=== PATIENT | male | born 1970 | race Hispanic/Latino ===

== ENCOUNTER 2018-03-16 19:21 | Inpatient (IN) | payer OTHER ==
[2018-03-16] MEDS ORDERED: Naloxone 0.4 mg/ml Inj (Adult) IVP ONE (19:35)
[2018-03-16] MEDS ORDERED: Sodium Chloride 0.9% 1,000 ML IV STA (19:35)
[2018-03-16 19:51] LABS: BASO % 0.4 % (0.0-2.0); EOS # 0.1 K/uL (0.0-0.7); EOS % 1.3 % (0.0-4.0); HEMOGLOBIN 15.6 g/dL (12.0-18.0); LYMPH # 3.2 K/uL (1.0-4.3); LYMPH % 36.4 % (20.0-40.0); MEAN CORPUSCULAR HEMOGLOBIN 31.6 pg (27.0-31.0); MEAN CORPUSCULAR HGB CONC 33.9 g/dL (33.0-37.0); MEAN PLATELET VOLUME 8.2 fl (7.2-11.7); MONO # 0.5 K/uL (0.0-0.8); MONO % 6.2 % (0.0-10.0); NEUT # 4.8 K/uL (1.8-7.0); NEUT % 55.7 % (50.0-75.0); NRBC % 0.1 % (0.0-0.0); RBC 4.96 Mil/uL (4.40-5.90); RED CELL DISTRIBUTION WIDTH 13.1 % (11.5-14.5); WHITE BLOOD COUNT 8.7 K/uL (4.8-10.8)
[2018-03-16 20:02] LABS: ACETAMINOPHEN < 10.0 ug/ml (10.0-30.0); ALB/GLOB RATIO 1.4 (1.0-2.1); ALBUMIN 4.7 g/dL (3.5-5.0); ALT/SGPT 48 U/L (21-72); AST/SGOT 59 U/L (17-59); BLOOD UREA NITROGEN 22 mg/dl (9-20); CALCIUM 9.1 mg/dL (8.4-10.2); GFR AFRICAN-AMERICAN > 60; GFR NON-AFRICAN AMERICAN > 60; SALICYLATE < 1.0 mg/dl
--- NOTE | 2018-03-16 20:05 | ED PDOC ---
HPI: Psych/Substance Abuse Time Seen by Provider: 03/16/18 19:25 Chief Complaint (Nursing): Substance Abuse Chief Complaint (Provider): heroin overdose ED Caveat: Altered Mental Status History Per: Patient History/Exam Limitations: clinical condition Onset/Duration Of Symptoms: Hrs Current Symptoms Are (Timing): Still Present Modifying Factor(s): Narcotics Severity: Moderate Additional History Per: EMS Additional Complaint(s): Pt brought in by EMS for altered mental status. Pt was found on the floor of a parking lot, apparently had snorted heroin prior to that. EMS gave 4 mg intranasal narcan with only minimal improvement. Pt arrived being bagged by ambu bag. Pt moaning slightly but not conversant. NO other history known. Past Medical History Reviewed: Unable To Obtain Vital Signs: Last Vital Signs Temp 98.6 F 03/16/18 19:51 Pulse 89 03/16/18 19:51 Resp 16 03/16/18 19:51 BP 132/109 H 03/16/18 19:51 Pulse Ox 100 03/16/18 19:51 - Family History Family History: States: Unknown Family Hx - Home Medications Home Medications: Ambulatory Orders Medication Instructions Recorded ALPRAZolam [Xanax] 1 mg PO DAILY PRN 03/17/18 Mirtazapine [Remeron] 15 mg PO 03/17/18 Zolpidem [Ambien] 5 mg PO HS 03/17/18 Azithromycin [Zithromax] 250 mg PO DAILY #6 tab 03/18/18 amLODIPine [Norvasc] 5 mg PO DAILY #30 tab 03/18/18 - Allergies Allergies/Adverse Reactions: Allergies Allergy/AdvReac Type Severity Reaction Status Date / Time No Known Allergies Allergy Verified 03/17/18 05:49 Review of Systems Review Of Systems: ROS cannot be obtained secondary to pt's inabilty to answer questions. Physical Exam - Physical Exam Appears: Positive for: In Acute Distress (diaphoretic, not conversant but moaning) Head Exam: Positive for: ATRAUMATIC, NORMAL INSPECTION, NORMOCEPHALIC Skin: Positive for: Normal Color, Warm, Dry Eye Exam: Positive for: PERRL. Negative for: Nystagmus, Periorbital swelling, Periorbital tenderness, Conjunctival injection ENT: Positive for: Normal ENT Inspection Neck: Positive for: Normal Cardiovascular/Chest: Positive for: Regular Rate, Rhythm, Chest Non Tender Respiratory: Positive for: Normal Breath Sounds. Negative for: Crackles Gastrointestinal/Abdominal: Positive for: Normal Exam, Bowel Sounds, Soft Extremity: Positive for: Normal ROM Neurologic/Psych: Negative for: Alert, Oriented - Laboratory Results Result Diagrams: 03/17/18 06:06 03/17/18 05:50 - ECG ECG Rhythm: Positive for: Sinus Rhythm (95) O2 Sat by Pulse Oximetry: 100 Medical Decision Making Medical Decision Making: Pt presented to the ER sp heroin overdose, minimally responsive to verbal stimuli, diaphoretic. pt had apparently never lost his pulse. currently vitals stable pt initially set up with ongoing security monitor accucheck 162 narcan.4 given with increased agitation/pt began waking up and become more responsive pt switched to NRB Ordered CT head to rule out intracranial process labs, cultures, rule out sepsis rule out electrolye imbalance 20:21 EXAM: CT Head Without Intravenous Contrast EXAM DATE/TIME: 03/16/2018 7:33 PM CLINICAL HISTORY: 43 years old, male; Signs and symptoms; Other: Poss overdose; Additional info: Found on the ground TECHNIQUE: Axial computed tomography images of the head/brain without intravenous contrast. All CT scans at this facility use at least one of these dose optimization techniques: automated exposure control; mA and/or kV adjustment per patient size (includes targeted exams where dose is matched to clinical indication); or iterative reconstruction. COMPARISON: No relevant prior studies available. FINDINGS: Brain: Normal. No hemorrhage. No significant white matter disease. No edema. Ventricles: Normal. No ventriculomegaly. Bones/joints: Normal. No acute fracture. Sinuses: Normal as visualized. No acute sinusitis. Mastoid air cells: Normal as visualized. No mastoid effusion. Soft tissues: Normal. IMPRESSION: No acute findings. Thank you for allowing us to participate in the care of your patient. Dictated and Authenticated by: Latrell Engel MD 03/16/2018 8:21 PM Eastern Time ([place] & [place]) X-Ray: X-Ray shows non cardiogenic pulmonary edema secondary to heroin abuse. Patient also given Clindamycin for potential infection or pneumonia. Dr Lou aware. Disposition - Clinical Impression Clinical Impression: Drug overdose - Patient ED Disposition Is Patient to be Admitted: Yes - Disposition Disposition Time: 21:00 Condition: STABLE
[2018-03-16 20:13] LABS: BARBITURATES, UR NEGATIVE (NEGATIVE); BENZODIAZEPINES, UR POSITIVE (NEGATIVE); OPIATES, UR POSITIVE (NEGATIVE); PHENCYCLIDINE, UR NEGATIVE (NEGATIVE)
[2018-03-16 20:21] LABS: SPERM URINE RARE /hpf; URINE BILIRUBIN NEGATIVE (NEGATIVE); URINE BLOOD NEGATIVE (NEGATIVE); URINE CLARITY CLEAR (Clear); URINE COLOR YELLOW (YELLOW); URINE GLUCOSE (UA) NEG (Normal); URINE HYALINE CAST 0-2 /hpf (0-2); URINE LEUKOCYTE ESTERASE NEG Leu/uL (Negative); URINE PROTEIN NEGATIVE (NEGATIVE); URINE UROBILINOGEN 0.2-1.0 mg/dL (0.2-1.0)
[2018-03-17] MEDS ORDERED: Clindamycin 600mg/50ml NS 600 MG/50 ML BAG IVPB STA (00:11)
[2018-03-17 00:35] LABS: ABG ALLEN TEST YES; ARTERIAL BLOOD GAS HCO3 26.1 mmol/L (21-28); ARTERIAL BLOOD GAS O2 SAT 95.6 % (95-98); ARTERIAL BLOOD GAS PCO2 56 mm/Hg (35-45); ARTERIAL BLOOD GAS PH 7.32 (7.35-7.45); ARTERIAL BLOOD GAS PO2 72 mm/Hg (80-100); ARTERIAL BLOOD GAS TCO2 30.6 mmol/L (22-28)
[2018-03-17] MEDS ORDERED: Clindamycin 600mg/50ml NS 600 MG/50 ML BAG IVPB ONE (01:21)
[2018-03-17 01:40] LABS: B-TYPE NATRIURETIC PEPTIDE 96.5 pg/ml (0-450); TROPONIN I 0.093 ng/mL (0.00-0.120)
[2018-03-17 04:03] VITALS: BMI 33.7
[2018-03-17] MEDS ORDERED: Sodium Chloride 3% for Inhalation 4 ML VIAL.NEB IH PRN (05:04)
[2018-03-17] MEDS ORDERED: Dextrose 5%/0.45% NS 1,000 ML IV SCH (05:15)
[2018-03-17 06:20] LABS: BASO % 0.3 % (0.0-2.0); EOS % 0.2 % (0.0-4.0); LYMPH # 0.9 K/uL (1.0-4.3); LYMPH % 6.2 % (20.0-40.0); MEAN CELL VOLUME 93.1 fl (80.0-94.0); MEAN CORPUSCULAR HEMOGLOBIN 31.7 pg (27.0-31.0); MEAN CORPUSCULAR HGB CONC 34.1 g/dL (33.0-37.0); MEAN PLATELET VOLUME 7.7 fl (7.2-11.7); MONO # 0.7 K/uL (0.0-0.8); MONO % 4.4 % (0.0-10.0); NEUT # 13.7 K/uL (1.8-7.0); NEUT % 88.9 % (50.0-75.0); PLATELET COUNT 165 K/uL (130-400); RBC 4.42 Mil/uL (4.40-5.90); WHITE BLOOD COUNT 15.4 K/uL (4.8-10.8)
[2018-03-17 07:03] LABS: BLOOD UREA NITROGEN 16 mg/dl (9-20); CALCIUM 8.4 mg/dL (8.4-10.2); GFR AFRICAN-AMERICAN > 60; GFR NON-AFRICAN AMERICAN > 60
--- NOTE | 2018-03-17 08:06 | CT ---
PROCEDURE: CT HEAD WITHOUT CONTRAST. HISTORY: found on the ground COMPARISON: None available. TECHNIQUE: Axial computed tomography images were obtained through the head/brain without intravenous contrast. Radiation dose: Total exam DLP = 1090.41 mGy-cm. This CT exam was performed using one or more of the following dose reduction techniques: Automated exposure control, adjustment of the mA and/or kV according to patient size, and/or use of iterative reconstruction technique. FINDINGS: HEMORRHAGE: No intracranial hemorrhage. BRAIN: No mass effect or edema. No atrophy or chronic microvascular ischemic changes. VENTRICLES: Unremarkable. No hydrocephalus. CALVARIUM: Unremarkable. PARANASAL SINUSES: Unremarkable as visualized. No significant inflammatory changes. MASTOID AIR CELLS: Unremarkable as visualized. No inflammatory changes. OTHER FINDINGS: IMPRESSION: No acute intracranial abnormalities. No significant findings to account for the clinical presentation. Concordant results (preliminary interpretation) provided by [employer]. Procedure Completed: 19:50 Preliminary ([facility]) Report: Dictated and Authenticated: 20:21 Final Interpretation: 08:40 March 17, 2018.
[2018-03-17] MEDS: Enoxaparin 40 mg Syringe SC SCH (08:12)
[2018-03-17] MEDS: Clindamycin in NS 300 MG/50 ML BAG IVPB SCH ×2 (08:13→16:13)
--- NOTE | 2018-03-17 08:25 | RAD ---
HISTORY: heroin overdose COMPARISON: No prior. FINDINGS: LUNGS: Multifocal infiltrates likely mild pulmonary edema. PLEURA: No significant pleural effusion identified, no pneumothorax apparent. CARDIOVASCULAR: No radiographic findings to suggest acute or significant cardiovascular disease. OSSEOUS STRUCTURES: No significant abnormalities. VISUALIZED UPPER ABDOMEN: Normal. OTHER FINDINGS: None. IMPRESSION: Multifocal infiltrates likely noncardiogenic pulmonary edema. Concordant findings provided by [facility]
--- NOTE | 2018-03-17 08:30 | CARD ---
APPROVED REPORT EKG Measurement Heart [id number] <Conclusion> Normal sinus rhythm Normal ECG
--- NOTE | 2018-03-17 08:58 | CP.PCM.CON ---
History of Present Illness - History of Present Illness History of Present Illness: Psychiatry consult note CC: Overdose on heroin HPI: 47 yo male presents s/p heroin overdose. He states that he took heroin to deal with his chronic pain. He denies suicide attempt. He reports that he is grieving the of his mother, but denies feeling consistently depressed. No anxiety/AH/VH/SI/HI. He is not interested in inpatient or outpatient psychiatric or substance abuse treatment at this time. PPHx: Denies past psychiatric history of hospitalizations, medications or suicide attempts MHx: Chronic pain (knee, ankle, shoulder, back) ALL: NKDA FHx: Father w/ h/o paranoid schizophrenia; completed suicide SHx: Unemployed; lives alone, single, no kids; +Heroin abuse; +drinks ETOH socially (approx weekly); +smokes 1ppd MSE: A + O x 3, calm, cooperative, good eye contact, mood/affect-neutral, thought process- linear/coherent, though content- no delusions; no AH/VH/SI/HI; Fair I/J; good impulse control Impression: 47 yo male presents s/p heroin overdose; diagnosis: Opioid Use Disorder -No acute psychiatric admission indicated -Patient not interested in substance abuse or outpatient psychiatric treatment at this time -Psychoeducation provided on the dangers of heroin abuse Past Patient History - Past Medical History & Family History Past Medical History?: Yes - Past Social History Smoking Status: Light Smoker < 10 Cigarettes Daily - CARDIAC Hx Hypercholesterolemia: Yes Hx Hypertension: Yes - PULMONARY Hx Sleep Apnea: Yes - NEUROLOGICAL Other/Comment: insomnia - MUSCULOSKELETAL/RHEUMATOLOGICAL Hx Falls: No Other/Comment: 3 right knee surgeries. 1 left knee surgery. 1 right ankle surgery. 3 right shoulder surgeries. bilateral hernia surgery - PSYCHIATRIC Hx Substance Use: Yes (heroin use) - ANESTHESIA Hx Anesthesia: Yes Hx Anesthesia Reactions: No Hx Malignant Hyperthermia: No Meds Allergies/Adverse Reactions: Allergies Allergy/AdvReac Type Severity Reaction Status Date / Time No Known Allergies Allergy Verified 03/17/18 05:49 - Medications Medications: Current Medications Acetaminophen (Tylenol 325mg Tab) 650 mg PO Q4 PRN PRN Reason: Pain, moderate (4-7) Alprazolam (Xanax) 1 mg PO DAILY PRN PRN Reason: Anxiety Enoxaparin Sodium (Lovenox) 40 mg SC DAILY JUMA PRN Reason: Protocol Last Admin: 03/17/18 08:12 Dose: 40 mg Clindamycin in NS (Clindamycin 300 Mg/50 Ml-Ns) 300 mg in 50 mls @ 48.077 mls/ hr IVPB Q8 JUMA PRN Reason: Protocol Last Admin: 03/17/18 08:13 Dose: 48.077 mls/hr Dextrose/Sodium Chloride (Dextrose 5%/0.45% Ns 1000 Ml) 1,000 mls @ 40 mls/hr IV .Q24H JUMA Stop: 03/18/18 05:06 Last Admin: 03/17/18 05:39 Dose: 40 mls/hr Pneumococcal Polyvalent Vaccine (Pneumovax 23 Vaccine) 0.5 ml IM .ONCE ONE Stop: 03/17/18 09:01 Last Admin: 03/17/18 08:13 Dose: 0.5 ml Results - Vital Signs Recent Vital Signs: Last Vital Signs Temp 98.7 F 03/17/18 08:00 Pulse 72 03/17/18 08:00 Resp 12 03/17/18 08:00 BP 122/66 03/17/18 08:00 Pulse Ox 96 03/17/18 08:00 - Labs Result Diagrams: 03/17/18 06:06 03/17/18 05:50 Labs: Laboratory Results - last 24 hr 03/16/18 03/16/18 03/16/18 19:35 19:35 19:35 WBC 8.7 RBC 4.96 Hgb 15.6 Hct 46.1 MCV 93.0 MCH 31.6 H MCHC 33.9 RDW 13.1 Plt Count 219 MPV 8.2 Neut % (Auto) 55.7 Lymph % (Auto) 36.4 [place] % (Auto) 6.2 Eos % (Auto) 1.3 Baso % (Auto) 0.4 Neut # (Auto) 4.8 Lymph # (Auto) 3.2 [place] # (Auto) 0.5 Eos # (Auto) 0.1 Baso # (Auto) 0.0 pCO2 pO2 HCO3 ABG pH ABG Total CO2 ABG O2 Saturation ABG Base Excess [place] Test ABG Potassium A-a O2 Difference Glucose Lactate Vent Mode FiO2 Sodium 144 Potassium 4.0 Chloride 103 Carbon Dioxide 26 Anion Gap 19 BUN 22 H Creatinine 1.3 Est GFR ( Amer) > 60 Est GFR (Non-Af Amer) > 60 Random Glucose 182 H Calcium 9.1 Total Bilirubin 0.5 AST 59 ALT 48 Alkaline Phosphatase 88 Troponin I NT-Pro-B Natriuret Pep Total Protein 8.1 Albumin 4.7 Globulin 3.4 Albumin/Globulin Ratio 1.4 Arterial Blood Potassium Urine Color Urine Clarity Urine pH Ur Specific [place] Urine Protein Urine Glucose (UA) Urine Ketones Urine Blood Urine Nitrate Urine Bilirubin Urine Urobilinogen Ur Leukocyte Esterase Urine RBC (Auto) Urine Microscopic WBC Hyaline Casts Urine Sperm (Auto) Salicylates < 1.0 Urine Opiates Screen Urine Methadone Screen Acetaminophen < 10.0 L Ur Barbiturates Screen Ur Phencyclidine Scrn Ur Amphetamines Screen U Benzodiazepines Scrn U Oth Cocaine Metabols U Cannabinoids Screen Alcohol, Quantitative < 10 03/16/18 03/16/18 03/17/18 19:35 19:35 00:27 WBC RBC Hgb Hct MCV MCH MCHC RDW Plt Count MPV Neut % (Auto) Lymph % (Auto) [place] % (Auto) Eos % (Auto) Baso % (Auto) Neut # (Auto) Lymph # (Auto) [place] # (Auto) Eos # (Auto) Baso # (Auto) pCO2 56 H pO2 72 L HCO3 26.1 ABG pH 7.32 L ABG Total CO2 30.6 H ABG O2 Saturation 95.6 ABG Base Excess 1.6 Shaka Test Yes ABG Potassium 4.0 A-a O2 Difference 571.0 Glucose 115 H Lactate 1.5 Vent Mode Nrb FiO2 100.0 Sodium 137.0 Potassium Chloride 105.0 Carbon Dioxide Anion Gap BUN Creatinine Est GFR ( Amer) Est GFR (Non-Af Amer) Random Glucose Calcium Total Bilirubin AST ALT Alkaline Phosphatase Troponin I NT-Pro-B Natriuret Pep Total Protein Albumin Globulin Albumin/Globulin Ratio Arterial Blood Potassium 4.0 Urine Color Yellow Urine Clarity Clear Urine pH 6.0 Ur Specific [place] 1.017 Urine Protein Negative Urine Glucose (UA) Neg Urine Ketones Negative Urine Blood Negative Urine Nitrate Negative Urine Bilirubin Negative Urine Urobilinogen 0.2-1.0 Ur Leukocyte Esterase Neg Urine RBC (Auto) 4 H Urine Microscopic WBC < 1 Hyaline Casts 0-2 Urine Sperm (Auto) Rare H Salicylates Urine Opiates Screen Positive H Urine Methadone Screen Negative Acetaminophen Ur Barbiturates Screen Negative Ur Phencyclidine Scrn Negative Ur Amphetamines Screen Negative U Benzodiazepines Scrn Positive U Oth Cocaine Metabols Negative U Cannabinoids Screen Negative Alcohol, Quantitative 03/17/18 03/17/18 03/17/18 01:13 05:50 06:06 WBC 15.4 H D RBC 4.42 Hgb 14.0 Hct 41.2 MCV 93.1 MCH 31.7 H MCHC 34.1 RDW 13.0 Plt Count 165 MPV 7.7 Neut % (Auto) 88.9 H Lymph % (Auto) 6.2 L [place] % (Auto) 4.4 Eos % (Auto) 0.2 Baso % (Auto) 0.3 Neut # (Auto) 13.7 H Lymph # (Auto) 0.9 L [place] # (Auto) 0.7 Eos # (Auto) 0.0 Baso # (Auto) 0.0 pCO2 pO2 HCO3 ABG pH ABG Total CO2 ABG O2 Saturation ABG Base Excess [place] Test ABG Potassium A-a O2 Difference Glucose Lactate Vent Mode FiO2 Sodium 136 Potassium 4.5 Chloride 103 Carbon Dioxide 28 Anion Gap 10 BUN 16 Creatinine 0.7 L Est GFR ( Amer) > 60 Est GFR (Non-Af Amer) > 60 Random Glucose 106 Calcium 8.4 Total Bilirubin AST ALT Alkaline Phosphatase Troponin I 0.0930 NT-Pro-B Natriuret Pep 96.5 Total Protein Albumin Globulin Albumin/Globulin Ratio Arterial Blood Potassium Urine Color Urine Clarity Urine pH Ur Specific [place] Urine Protein Urine Glucose (UA) Urine Ketones Urine Blood Urine Nitrate Urine Bilirubin Urine Urobilinogen Ur Leukocyte Esterase Urine RBC (Auto) Urine Microscopic WBC Hyaline Casts Urine Sperm (Auto) Salicylates Urine Opiates Screen Urine Methadone Screen Acetaminophen Ur Barbiturates Screen Ur Phencyclidine Scrn Ur Amphetamines Screen U Benzodiazepines Scrn U Oth Cocaine Metabols U Cannabinoids Screen Alcohol, Quantitative
[2018-03-17] MEDS ORDERED: Pneumococcal 23-Valent Vaccine IM ONE (09:00)
[2018-03-17 09:09] LABS: BANDS 1 % (0-2); LYMPHOCYTE 6 % (20-50); MONOCYTE 4 % (0-10); NEUTROPHIL 88 % (42-75); REACTIVE LYMPHOCYTES 1 % (0-0); TOTAL CELLS COUNTED 100
[2018-03-17 09:10] LABS: PLATELET ESTIMATE NORMAL (NORMAL)
[2018-03-18] MEDS: Clindamycin in NS 300 MG/50 ML BAG IVPB SCH ×2 (00:52→08:49)
--- NOTE | 2018-03-18 08:32 | HP ---
HISTORY OF PRESENT ILLNESS: Mr. Pantoja is a 47-year-old male who was brought in by EMS with altered mental status. He was admitted via the emergency room with drug overdose. They had given him some Narcan, and he was brought to the emergency room, was moaning, was not conversant, but while in intensive care unit, he became more alert, and presently gives a history of having used heroin on the day of admission, and he indicates that he has recently started using heroin very frequently since the of his mother. PAST MEDICAL HISTORY: He has a past medical history of depression. FAMILY HISTORY: Noncontributory. SOCIAL HISTORY: He indicates that he smokes one pack of cigarettes a day and uses heroin. Denies alcohol use and indicates that his mother recently in February and has since became more distressed. 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 PHYSICAL EXAMINATION: GENERAL: The patient is awake, alert, and oriented. VITAL SIGNS: Blood pressure on admission 132/109 with a pulse of 89, and respiratory rate 16. He was afebrile. O2 sat 100% on room air. SKIN: Shows fair turgor. HEENT: Pupils are equal and reactive to light and accommodation. Mouth shows fair hygiene. JVP flat. LUNGS: Scattered bilateral rales. HEART: S1, S2. ABDOMEN: Soft, nontender. No organomegaly. EXTREMITIES: No edema or cyanosis. surgery. CENTRAL NERVOUS SYSTEM: Grossly intact. LABORATORY DATA: Remarkable for WBC of 8.7, hemoglobin 15.6, and platelet count 219,000. Sodium 144, potassium 4, BUN 22, creatinine 1.3, serum glucose 182. Chest x-ray is remarkable for bilateral pulmonary infiltrates probably secondary to aspiration, one also has to rule out noncardiogenic pulmonary edema. CAT scan of the head was unremarkable. IMPRESSION: Drug overdose (heroin), pneumonia probably aspiration, pulmonary edema, history of depression, mild elevation of blood pressure probably secondary to stress. PLAN: Intravenous antibiotics, psychiatry evaluation. The patient does not want to stay in the hospital, he indicates that he has to go and take care of his . He will be seen by psychiatry, and if cleared, he definitely needs to stay in the hospital for IV antibiotic therapy, but he is advised that he can sign off against medical advice if he does not want to stay. Markos Lou MD
[2018-03-18] MEDS: Enoxaparin 40 mg Syringe SC SCH (08:50)
--- NOTE | 2018-03-18 10:20 | RAD ---
PROCEDURE: CHEST RADIOGRAPH, 1 VIEW HISTORY: pneumonia COMPARISON: Chest radiograph dated 03/16/2018 FINDINGS: LUNGS: Prominence of the pulmonary vasculature may be secondary to AP technique and/or pulmonary vascular congestion. Right basilar atelectasis. PLEURA: No pneumothorax or pleural fluid seen. CARDIOVASCULAR: Cardiomediastinal silhouette stably enlarged. OSSEOUS STRUCTURES: Unchanged. VISUALIZED UPPER ABDOMEN: Normal. OTHER FINDINGS: None. IMPRESSION: Prominence of the pulmonary vasculature may be secondary to AP technique and/or pulmonary vascular congestion. Right basilar atelectasis.
[2018-03-18 12:12] VITALS: BP 187/94; PULSE 66; RESP 18; TEMP 98.3
--- NOTE | 2018-03-18 13:03 | CP.PCM.DIS ---
Provider - Provider Date of Admission: 03/17/18 00:12 Attending physician: Markos Lou MD Time Spent in preparation of Discharge (in minutes): 35 Diagnosis - Discharge Diagnosis (1) Drug overdose Status: Acute (2) Depression Status: Acute (3) Hypertension Status: Acute (4) Aspiration pneumonia Status: Acute (5) Pain of anterior chest wall with respiration Status: Acute Hospital Course - Lab Results Lab Results: Micro Results 03/16/18 19:35 Urine,Galan Urine Culture - Final No Growth (<1,000 CFU/ML) 03/16/18 20:00 Blood Blood Culture - Preliminary NO GROWTH AFTER 24 HOURS 03/16/18 20:00 Blood Blood Culture - Preliminary NO GROWTH AFTER 24 HOURS Most Recent Lab Values WBC 15.4 K/uL (4.8-10.8) H D 03/17/18 06:06 RBC 4.42 Mil/uL (4.40-5.90) 03/17/18 06:06 Hgb 14.0 g/dL (12.0-18.0) 03/17/18 06:06 Hct 41.2 % (35.0-51.0) 03/17/18 06:06 MCV 93.1 fl (80.0-94.0) 03/17/18 06:06 MCH 31.7 pg (27.0-31.0) H 03/17/18 06:06 MCHC 34.1 g/dL (33.0-37.0) 03/17/18 06:06 RDW 13.0 % (11.5-14.5) 03/17/18 06:06 Plt Count 165 K/uL (130-400) 03/17/18 06:06 MPV 7.7 fl (7.2-11.7) 03/17/18 06:06 Neut % (Auto) 88.9 % (50.0-75.0) H 03/17/18 06:06 Lymph % (Auto) 6.2 % (20.0-40.0) L 03/17/18 06:06 [place] % (Auto) 4.4 % (0.0-10.0) 03/17/18 06:06 Eos % (Auto) 0.2 % (0.0-4.0) 03/17/18 06:06 Baso % (Auto) 0.3 % (0.0-2.0) 03/17/18 06:06 Neut # (Auto) 13.7 K/uL (1.8-7.0) H 03/17/18 06:06 Lymph # (Auto) 0.9 K/uL (1.0-4.3) L 03/17/18 06:06 [place] # (Auto) 0.7 K/uL (0.0-0.8) 03/17/18 06:06 Eos # (Auto) 0.0 K/uL (0.0-0.7) 03/17/18 06:06 Baso # (Auto) 0.0 K/uL (0.0-0.2) 03/17/18 06:06 Neutrophils % (Manual) 88 % (42-75) H 03/17/18 06:06 Band Neutrophils % 1 % (0-2) 03/17/18 06:06 Lymphocytes % (Manual) 6 % (20-50) L 03/17/18 06:06 Reactive Lymphs % 1 % (0-0) H 03/17/18 06:06 Monocytes % (Manual) 4 % (0-10) 03/17/18 06:06 Platelet Estimate Normal (NORMAL) 03/17/18 06:06 RBC Morphology Normal (NORMAL) 03/17/18 06:06 pCO2 56 mm/Hg (35-45) H 03/17/18 00:27 pO2 72 mm/Hg (80-100) L 03/17/18 00:27 HCO3 26.1 mmol/L (21-28) 03/17/18 00:27 ABG pH 7.32 (7.35-7.45) L 03/17/18 00:27 ABG Total CO2 30.6 mmol/L (22-28) H 03/17/18 00:27 ABG O2 Saturation 95.6 % (95-98) 03/17/18 00:27 ABG Base Excess 1.6 mmol/L (-2.0-3.0) 03/17/18 00:27 Shaka Test Yes 03/17/18 00:27 ABG Potassium 4.0 mmol/L (3.6-5.2) 03/17/18 00:27 A-a O2 Difference 571.0 mm/Hg 03/17/18 00:27 Sodium 137.0 mmol/L (132-148) 03/17/18 00:27 Chloride 105.0 mmol/L (98-107) 03/17/18 00:27 Glucose 115 mg/dL (75-110) H 03/17/18 00:27 Lactate 1.5 mmol/L (0.7-2.1) 03/17/18 00:27 Vent Mode Nrb 03/17/18 00:27 FiO2 100.0 % 03/17/18 00:27 Sodium 136 mmol/l (132-148) 03/17/18 05:50 Potassium 4.5 MMOL/L (3.6-5.0) 03/17/18 05:50 Chloride 103 mmol/L (98-107) 03/17/18 05:50 Carbon Dioxide 28 mmol/L (22-30) 03/17/18 05:50 Anion Gap 10 (10-20) 03/17/18 05:50 BUN 16 mg/dl (9-20) 03/17/18 05:50 Creatinine 0.7 mg/dl (0.8-1.5) L 03/17/18 05:50 Est GFR ( Amer) > 60 03/17/18 05:50 Est GFR (Non-Af Amer) > 60 03/17/18 05:50 Random Glucose 106 mg/dL (75-110) 03/17/18 05:50 Calcium 8.4 mg/dL (8.4-10.2) 03/17/18 05:50 Total Bilirubin 0.5 mg/dl (0.2-1.3) 03/16/18 19:35 AST 59 U/L (17-59) 03/16/18 19:35 ALT 48 U/L (21-72) 03/16/18 19:35 Alkaline Phosphatase 88 U/L (38-126) 03/16/18 19:35 Troponin I 0.0930 ng/mL (0.00-0.120) 03/17/18 01:13 NT-Pro-B Natriuret Pep 96.5 pg/ml (0-450) 03/17/18 01:13 Total Protein 8.1 G/DL (6.3-8.2) 03/16/18 19:35 Albumin 4.7 g/dL (3.5-5.0) 03/16/18 19:35 Globulin 3.4 gm/dL (2.2-3.9) 03/16/18 19:35 Albumin/Globulin Ratio 1.4 (1.0-2.1) 03/16/18 19:35 Arterial Blood Potassium 4.0 mmol/L (3.6-5.2) 03/17/18 00:27 Urine Color Yellow (YELLOW) 03/16/18 19:35 Urine Clarity Clear (Clear) 03/16/18 19:35 Urine pH 6.0 (5.0-8.0) 03/16/18 19:35 Ur Specific [place] 1.017 (1.003-1.030) 03/16/18 19:35 Urine Protein Negative mg/dL (NEGATIVE) 03/16/18 19:35 Urine Glucose (UA) Neg mg/dL (Normal) 03/16/18 19:35 Urine Ketones Negative mg/dL (NEGATIVE) 03/16/18 19:35 Urine Blood Negative (NEGATIVE) 03/16/18 19:35 Urine Nitrate Negative (NEGATIVE) 03/16/18 19:35 Urine Bilirubin Negative (NEGATIVE) 03/16/18 19:35 Urine Urobilinogen 0.2-1.0 mg/dL (0.2-1.0) 03/16/18 19:35 Ur Leukocyte Esterase Neg [place]/uL (Negative) 03/16/18 19:35 Urine RBC (Auto) 4 /hpf (0-3) H 03/16/18 19:35 Urine Microscopic WBC < 1 /hpf (0-5) 03/16/18 19:35 Hyaline Casts 0-2 /hpf (0-2) 03/16/18 19:35 Urine Sperm (Auto) Rare /hpf (NONE) H 03/16/18 19:35 Salicylates < 1.0 mg/dl 03/16/18 19:35 Urine Opiates Screen Positive (NEGATIVE) H 03/16/18 19:35 Urine Methadone Screen Negative (NEGATIVE) 03/16/18 19:35 Acetaminophen < 10.0 ug/ml (10.0-30.0) L 03/16/18 19:35 Ur Barbiturates Screen Negative (NEGATIVE) 03/16/18 19:35 Ur Phencyclidine Scrn Negative (NEGATIVE) 03/16/18 19:35 Ur Amphetamines Screen Negative (NEGATIVE) 03/16/18 19:35 U Benzodiazepines Scrn Positive (NEGATIVE) 03/16/18 19:35 U Oth Cocaine Metabols Negative (NEGATIVE) 03/16/18 19:35 U Cannabinoids Screen Negative (NEGATIVE) 03/16/18 19:35 Alcohol, Quantitative < 10 mg/dl (0-10) 03/16/18 19:35 - Hospital Course Hospital Course: clinically improved with therapy Discharge Exam - Head Exam Head Exam: ATRAUMATIC, NORMAL INSPECTION, NORMOCEPHALIC - Eye Exam Eye Exam: EOMI, Normal appearance, PERRL Pupil Exam: NORMAL ACCOMODATION, PERRL - GI/Abdominal Exam GI & Abdominal Exam: Normal Bowel Sounds - Rectal Exam Rectal Exam: NORMAL INSPECTION - Neurological Exam Neurological exam: Alert, CN II-XII Intact, Normal Gait, Oriented x3, Reflexes Normal - Psychiatric Exam Psychiatric exam: Normal Affect, Normal Mood - Skin Skin Exam: Dry, Intact, Normal Color, Warm Discharge Plan - Follow Up Plan Condition: GOOD Disposition: HOME/ ROUTINE Patient education suggested?: Yes Additional Instructions: discharge today follow up with dr méndez
[2018-03-20 20:23] VITALS: O2SAT 100
== END 2018-03-18 14:08 | disposition home or self-care (01) | DRG 582 ==
LOC: EDBD 19:21 → H.ER 19:21 → H.ERHOLD 03-17 00:12 → H.ICU/CCU 03-17 03:52
PROVIDERS: ADMIT Internal Medicine Pulmonary Disease; ATTEND Internal Medicine Pulmonary Disease
PROC: 3E0234Z Introduction of Serum, Toxoid and Vaccine into Muscle, Percutaneous Approach (ICD-10-PCS; principal; 2018-03-17)
DX: T40.1X1A Poisoning by heroin, accidental (unintentional), initial encounter (principal); J69.0 Pneumonitis due to inhalation of food and vomit; F11.10 Opioid abuse, uncomplicated; F32.9 Major depressive disorder, single episode, unspecified; G89.29 Other chronic pain; I10 Essential (primary) hypertension; E78.00 Pure hypercholesterolemia, unspecified; F17.210 Nicotine dependence, cigarettes, uncomplicated; G47.30 Sleep apnea, unspecified; Z23 Encounter for immunization